=== PATIENT | male | born 2000 | race Caucasian/White ===

== ENCOUNTER 2024-12-22 12:11 | Outpatient (AMB) | payer OTHER, SELFPAY ==
--- NOTE | 2024-12-22 12:13 | A.OFFPC_ITS ---
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 / Requesting a CPE Intake Note: patient here for new patient visit Count Team Member Required: No Allergies No Known Allergies Allergy (Verified 12/22/24 12:35) Medication List - Last Reconciled 12/22/24 by Archana Kidd CNP No Known Home Meds Tobacco use date assessed: 12/22/24 Dental Screening Dental Screen Date: 12/22/24 Did you have a dental visit in the last 12 months?: Yes Did you have a dental problem in the last 6 months where you did not have access to dental care?: No Was dental information given to patient?: Patient has dentist HPI HPI Comments History of Present Illness Details 24-year-old male presents to establish c are. He is not on prescription medications. Prior PCP? - [facility] Last office visit/CPE/labs - 5 years ago Acute issue(s) - None Past Medical History - Myopia Surgical History - None Family History - Mom: HTN - MGM: DM - PGM: DM - PGF: DM Social History - Nonsmoker. Does not vape. Does not dri nk alcohol. Denies recreational drug use - Has been making healthy dietary choice s. Exercises routinely. Generally sleep well - He notes that he has never been sexual ly active and has no concern for STDs. Health maintenance - Last eye exam was 3-4 weeks ago with [facility]. Encouraged to sign a release for his PCP to obtain his ophthalmology record - Last dental visit was 4-5 months ago - Last tetanus vaccine was more than 10 years ago; declines Tdap vaccine today - Has not been vaccinated for the flu ; declines vaccination Specialists - None PFSH Family History Mother High blood pressure Maternal Grandmother Diabetes Paternal Grandmother Diabetes Paternal Grandfather Diabetes Social History Housing: House Patient Tobacco Use Status: Never used Tobacco e-Cigarette/Vaping Use: Never Used Second Hand Smoke Exposure: No service: No Current occupational status: employed Current occupation: [employer] Current occupational exposures/hazards: No Cognitive needs: No Hearing needs: No Vision needs: Yes Questionnaire PHQ-9 Over the last 2 weeks, how often have you been bothered by any of the following problems? 1. Little interest or pleasure in doing things: not at all 2. Feeling down, depressed, or hopeless: not at all 3. Trouble falling or staying asleep, or sleeping too much: not at all 4. Feeling tired or having little energy: not at all 5. Poor appetite or overeating: not at all 6. Feeling bad about yourself - or that you are a failure or have let yourself or your family down: not at all 7. Trouble concentrating on things, such as reading the newspaper or watching television: not at all 8. Moving or speaking so slowly that other people could have noticed. Or the opposite - being so fidgety or restless that you have been moving around a lot more than usual: not at all 9. Thoughts that you would be better off or of hurting yourself in some way: not at all Total score: 0 Depression Screening Interpretation: Negative Depression Screening Done: Yes 69048 - PHQ-9 Billing: Yes Source: Developed by Drs. Michael Huffman, Virginia Holbrook, Obi Fletcher and colleagues, with an educational fareed from [employer]. Thrive Questionnaire Date Thrive assessed: 12/22/24 I am a: Patient What is your living situation today?: I have a steady place to live Within the past 12 months, did the food you bought not last and you didn't have the money to get more?: Never true Within the past 12 months, did you worry whether your food would run out before you got money to buy more?: Never true Do you have trouble paying for medicines?: No Do you have trouble getting transportation to medical appointments?: No Do you have trouble paying your heating and electricity bill?: No Do you have trouble taking care of your child, family member or friend?: No Do you have trouble with day-to-day activities such as bathing, preparing meals, shopping, managing finances, etc.?: No Are you currently unemployed and looking for a job?: No Are you interested in more education?: No Please select the resources that you would like help with: None Currently or been in a relationship where the following occur: No concerns reported THRIVE Score: 0 AUDIT C Alcohol Use Questionnaire (AUDIT-C) 1. How often do you have a drink containing alcohol?: Never 3. How often do you have six or more drinks on one occasion?: Never Total Score: 0 Score Reviewed/Action Taken: Yes ABISAI-7 AMB Questionnaire ABISAI-7 Date ABISAI - 7 assessed: 12/22/24 Feeling nervous, anxious, or on edge: 0 = Not at all Not being able to stop or control worryin = Not at all Worrying too much about different things: 0 = Not at all Trouble relaxin = Not at all Being so restless that it is hard to sit still: 0 = Not at all Becoming easily annoyed or irritable: 0 = Not at all Feeling afraid as if something awful might happen: 0 = Not at all Total ABISAI-7 score (0-4 normal; 5-9 mild; 10-14 moderate; 15-21 severe): 0 Source: Developed by Drs. Michael Huffman, Virginia Holbrook, Obi Fletcher and colleagues, with an educational fareed from [employer]. ABISAI-7 Assessment Billing ABISAI-7 Assessment Tool: ABISAI-7 Assessment 48723 Physical exam (Primary Care) Vital Signs: Last Vital Signs Temp 98.0 F 12/22/24 12:20 Pulse 112 H 12/22/24 12:20 Resp 16 12/22/24 12:20 BP 150/74 H 12/22/24 12:20 Pulse Ox 100 12/22/24 12:20 Oxygen Delivery Method Room Air 12/22/24 12:20 BMI result Body Mass Index 17.7 Tobacco/Smoking Status: Tobacco use Status Tobacco use date assessed 12/22/24 12/22/24 12:19 Patient Tobacco Use Status Never used Tobacco 12/22/24 12:19 e-Cigarette/Vaping Use Never Used 12/22/24 12:19 PHQ-9: PHQ-9 Score PHQ-9: Total score 0 12/22/24 12:17 Depression Screening Interpretation: Negative Thrive Assessment: Date of Thrive Assessment Date Thrive assessed 12/22/24 12/22/24 12:17 Currently or been in a relationship where the following occur: No concerns reported Coding Level of Care Code New Pt Prev Care 18-39yr(04830 Diagnoses Normal physical examination, routine Z00.00 Underweight (BMI < 18.5) R63.6; Z68.1 Laboratory tests ordered as part of a complete physical exam (CPE) Z00.00 Additional Codes ABISAI-7 Assessment Billing - ABISAI-7 Assessment Tool: ABISAI-7 Assessment 54356 ([id number]) PHQ-9 - 69573 - PHQ-9 Billing: Yes ([id number]) Assessment & Plan Assessment & Plan (1) Normal physical examination, routine: Code(s): Z00.00 - Encounter for general adult medical examination without abnormal findings Category: Medical Plan: No significant functional limitations noted. Healthy diet and routine exercise encouraged. Perform lab work and follow-up for a telehealth visit for labs review in 2-4 weeks. Return sooner with symptoms or concerns. Verbalized understanding and agreed with the plan. (2) Underweight (BMI < 18.5): Code(s): R63.6 - Underweight; Z68.1 - Body mass index [BMI] 19.9 or less, adult Category: Medical Plan: He currently weighs 103 lb, BMI is 17.7. He notes adequate appetite. He runs every other day. Instructed on the importance of maintaining a healthy weight with protein rich foods. Follow-up as needed. Verbalized understanding and agreed with the plan. (3) Laboratory tests ordered as part of a complete physical exam (CPE): Code(s): Z00.00 - Encounter for general adult medical examination without abnormal findings Category: Medical Plan: Fasting labs ordered as part of a complete physical exam. Advised to fast for at least 10 hours before getting labs drawn. May drink water Verbalized understanding and agreed with treatment plan. Orders: Orders Complete Blood Count Auto Diff Today Z00.00 - Encounter for general adult medical examination without abnormal findings Comprehensive [place]. Panel Fast Today Z00.00 - Encounter for general adult medical examination without abnormal findings Microalbumin, Random (w Creat) Today Z00.00 - Encounter for general adult medical examination without abnormal findings Vitamin D 25-OH Total Today Z00.00 - Encounter for general adult medical examination without abnormal findings Lipid Panel Today Z00.00 - Encounter for general adult medical examination without abnormal findings TSH reflex Free T4 Today Z00.00 - Encounter for general adult medical examination without abnormal findings UA CC w/rflx Micro + Cult Today Z00.00 - Encounter for general adult medical examination without abnormal findings
[2024-12-22 12:20] VITALS: BP 150/74; PULSE 112; RESP 16; TEMP 36.7; O2SAT 100; BMI 17.7
[2024-12-22 12:44] VITALS: BP 96/60; PULSE 100
--- OUTSIDE RECORDS SUMMARY | 2024-12-22 14:38 | XMS_ITS ---
Author Name [facility] Organization Unknown Care Team Organization Name Specialty Phone Email Start Date End Da te [facility] Carolina Pizarro Primary Care 08/20/20222023 [facility] Rock Miles Primary [facility] 07/17/20222023 [facility] Annabelle Hernandez Primary Care 02/20/20222023
== END 2024-12-22 12:56 | disposition home or self-care (01) ==
LOC: HO.HMCFM 12:11
PROVIDERS: PCP Family Medicine; Visit Provider Nurse Practitioner Family
DX: Z00.00 Encounter for general adult medical examination without abnormal findings (principal); R63.6 Underweight; Z68.1 Body mass index [BMI] 19.9 or less, adult

== ENCOUNTER → 2024-12-22 12:11 | Outpatient (BNVA) | payer OTHER, SELFPAY | PROVIDERS: PCP Family Medicine; Visit Provider Nurse Practitioner Family | DX: Z00.00 Encounter for general adult medical examination without abnormal findings (principal); R63.6 Underweight; Z68.1 Body mass index [BMI] 19.9 or less, adult | CPT/HCPCS: 96127 ==

== ENCOUNTER 2024-12-23 10:11 | Outpatient (REF) | payer OTHER, SELFPAY ==
[2024-12-23 11:52] LABS: Appearance Urine Clear; Glucose Urine UA Negative (Negative); PH 7.5 (5.0-9.0); Specific Gravity - Urine 1.025 (1.005-1.025)
[2024-12-23 12:32] LABS: MANUAL DIFF FLAG NO
[2024-12-23 12:34] LABS: Hematocrit 43.0 % (42.0-52.0); Hemoglobin 13.5 g/dl (14.0-18.0); Imm Gran Abs Auto 0.02 X10*3/uL (0.00-0.03); Imm Gran Pct Auto 0.3 % (0.0-0.4); Lymphocytes Absolute Auto 1.8 X10*3/uL (1.2-4.9); Mean Corpuscular HGB Conc 31.4 g/dl (31.0-36.0); Mean Corpuscular Hemoglobin 21.5 pg (27.0-33.0); Mean Corpuscular Volume 68.6 fL (80.0-98.0); NRBC Abs Auto 0.000 X10*3/uL (0.0-0.012); NRBC Pct Auto 0.0 /100WBC (0.0-0.2); Platelet Count 318 X10*3/uL (160-400); Red Blood Count 6.27 X10*6/uL (4.60-5.80); White Blood Count 5.8 X10*3/uL (4.8-10.8)
[2024-12-23 13:01] LABS: Alanine Aminotransferase 15 U/L (0-40); Albumin Level 4.7 g/dL (3.5-5.0); Alkaline Phosphatase 66 U/L (39-117); Anion Gap 12 (12-20); Aspartate Amino Transferase 22 U/L (5-37); Blood Urea Nitrogen 13 mg/dL (9-16); Calcium 9.3 mg/dL (8.4-10.2); Carbon Dioxide 26 mmol/L (22-29); Chloride 110 mmol/L (96-108); Cholesterol 156 mg/dL (<200); Estimated Glomerular Filt Rate > 60; HDL Cholesterol 71 mg/dL (>40); Potassium 3.7 mmol/L (3.3-5.1); Sodium 144 mmol/L (135-145); Total Protein 7.4 g/dL (6.5-8.0); Triglycerides 41 mg/dL (<150)
[2024-12-23 13:04] LABS: Microalbum/Creatinine Ratio Ur 2.9 ug/mg cr (<30)
== END 2024-12-23 10:12 | disposition home or self-care (01) ==
LOC: HO.WFDLDS 10:11
PROVIDERS: Visit Provider Nurse Practitioner Family
DX: Z00.00 Encounter for general adult medical examination without abnormal findings (principal); Z13.6 Encounter for screening for cardiovascular disorders; Z13.21 Encounter for screening for nutritional disorder; Z13.29 Encounter for screening for other suspected endocrine disorder
CPT/HCPCS: 36415; 80053; 80061; 81003; 82043; 82306; 82570; 84443; 85025

== ENCOUNTER 2025-01-08 09:34 | Outpatient (AMB) | payer OTHER, SELFPAY ==
--- NOTE | 2025-01-08 09:31 | A.OFFPC_ITS ---
Intake Visit Reasons: Tele 2-3 wks labs review Intake Note: patient here for 2-3 wks Telehealth follow up for lab review Broom Bundler Required: No Allergies No Known Allergies Allergy (Verified 01/08/25 09:31) Tobacco use date assessed: 01/08/25 Dental Screening Dental Screen Date: 01/08/25 Did you have a dental visit in the last 12 months?: Yes Did you have a dental problem in the last 6 months where you did not have access to dental care?: No Was dental information given to patient?: Patient has dentist HPI HPI Comments History of Present Illness Details 24-year-old [facility] of recent lab results. No acute symptoms at this time. [facility] Family History Mother High blood pressure Maternal Grandmother Diabetes Paternal Grandmother Diabetes Paternal Grandfather Diabetes Social History Housing: House Patient Tobacco Use Status: Never used Tobacco e-Cigarette/Vaping Use: Never Used Second Hand Smoke Exposure: No service: No Current occupational status: employed Current occupation: [employer] Current occupational exposures/hazards: No Cognitive needs: No Hearing needs: No Vision needs: Yes Questionnaire Thrive Questionnaire Date Thrive assessed: 12/22/24 I am a: Patient What is your living situation today?: I have a steady place to live Within the past 12 months, did the food you bought not last and you didn't have the money to get more?: Never true Within the past 12 months, did you worry whether your food would run out before you got money to buy more?: Never true Do you have trouble paying for medicines?: No Do you have trouble getting transportation to medical appointments?: No Do you have trouble paying your heating and electricity bill?: No Do you have trouble taking care of your child, family member or friend?: No Do you have trouble with day-to-day activities such as bathing, preparing meals, shopping, managing finances, etc.?: No Are you currently unemployed and looking for a job?: No Are you interested in more education?: No Please select the resources that you would like help with: None Currently or been in a relationship where the following occur: No concerns reported THRIVE Score: 0 AUDIT C Alcohol Use Questionnaire (AUDIT-C) 3. How often do you have six or more drinks on one occasion?: Never Total Score: 0 ABISAI-7 AMB Questionnaire ABISAI-7 Date ABISAI - 7 assessed: 12/22/24 Source: Developed by Drs. Michael Huffman, Virginia Holbrook, Obi Fletcher and colleagues, with an educational fareed from [employer] Review of Systems Const Details: Denies chills, Denies fatigue, Denies fever(s), Denies headache(s) and Denies weakness Cardiac Denies chest pain, Denies claudication, Denies leg edema, Denies lightheadedness, Denies palpitations, Denies dyspnea, Denies dyspnea on exertion, Denies orthopnea and Denies other (Loss of consciousness) Resp Denies cough, Denies excessive phlegm production, Denies dyspnea, Denies dyspnea on exertion, Denies snoring and Denies wheezing Physical exam (Primary Care) Tobacco/Smoking Status: Tobacco use Status Tobacco use date assessed 01/08/25 01/08/25 09:33 Patient Tobacco Use Status Never used Tobacco 01/08/25 09:33 e-Cigarette/Vaping Use Never Used 01/08/25 09:33 Thrive Assessment: Date of Thrive Assessment Date Thrive assessed 12/22/24 01/08/25 09:33 Currently or been in a relationship where the following occur: No concerns reported Const Other: Patient is alert and oriented x3 Telehealth Telehealth Telehealth Platform: Telephone Location of provider rendering services: practice address Location of patient: address on file Patient Identification confirmed using: Name, : Yes Telehealth method: voice only Patient verbally consented to treatment: Yes Patient verbally consented to billing insurance company: Yes Patient informed of any privacy concerns related to visit: Yes Coding Level of Care Code Tele Est Pt Level 3 (66038) Diagnoses Vitamin D deficiency E55.9 Abnormal CBC R79.89 Time Spent (min) 15 Assessment & Plan Assessment & Plan (1) Vitamin D deficiency: Code(s): E55.9 - Vitamin D deficiency, unspecified Category: Medical Plan: Recent vitamin-D level is low, 23.7. Vitamin D3 25 mcg daily ordered; advised to take as prescribed. Recheck vitamin-D level before next visit. Advised to follow-up for telehealth visit in 6 weeks. Return sooner with symptoms or concerns. Verbalized understanding and agreed with the plan. (2) Abnormal CBC: Code(s): R79.89 - Other specified abnormal findings of blood chemistry Category: Medical Plan: Recent RBCs slightly elevated, 6.22, MCV is low, 68, RDW slightly elevated, 17.0, H&H normal. Equivocal although nutritional deficiency due to underweight may play a role. Encouraged adequate nutrition. Will recheck CBC and check iron studies, ferritin, vitamin B12, and folic levels. Will review results and make changes as needed. Verbalized understanding and agreed with the plan. Orders: Orders IRON PROFILE Today R79.89 - Other specified abnormal findings of blood chemistry Vitamin B12 and Folate Today R79.89 - Other specified abnormal findings of blood chemistry Vitamin D 25-OH Total 6 Weeks E55.9 - Vitamin D deficiency, unspecified Complete Blood Count no Diff Today R79.89 - Other specified abnormal findings of blood chemistry Ferritin Today R79.89 - Other specified abnormal findings of blood chemistry Medications: New cholecalciferol (vitamin D3) 25 mcg PO DAILY 90 tabs 3RF 90 days
== END 2025-01-08 10:43 | disposition home or self-care (01) ==
LOC: HO.HMCFM 09:34
PROVIDERS: PCP Family Medicine; Visit Provider Nurse Practitioner Family
DX: E55.9 Vitamin D deficiency, unspecified (principal); R79.89 Other specified abnormal findings of blood chemistry